=== PATIENT | male | born 1980 | race Caucasian/White ===

== ENCOUNTER 2017-04-07 06:53 | Day surgery (SDC) | payer BC ==
--- NOTE | 2017-04-06 10:18 | Pre-Procedure Note/Attestation ---
Pre-Procedure Note/Attestation Complete Prior to Procedure Planned Procedure: bilateral Procedure Narrative: Septoplasty Submucous resection bilateral inferior turbinates Attestation I attest that I discussed the nature of the procedure; its benefits; risks and complications; and alternatives (and the risks and benefits of such alternatives ), prior to the procedure, with the patient (or the patient's legal sales representative womens health). I attest that, if there was a reasonable possibility of needing a blood transfusion, the patient (or the patient's legal sales representative womens health) was given the [facility] standardized written summary, pursuant to the [place] Blood Safety Act ([place] Health and Safety Code # 1645, as amended). I attest that I re-evaluated the patient just prior to the surgery and that there has been no change in the patient's H&P-dictated 04/06/17 AILYN BOX Apr 06, 2017 10:18
--- NOTE | 2017-04-06 17:30 | Pre-op HX & Phy Repo 2 SIG ---
DATE OF ADMISSION: 04/07/2017 DATE OF SERVICE: 04/06/2017 DATE OF OPERATION: 04/07/2017 INDICATION FOR SURGERY: This is a 36-year-old male for septoplasty, submucous resection of right and left inferior turbinates. He has failed nasal steroids and antihistamines. He has nasal septal deviation and hypertrophied right and left inferior turbinates. ALLERGIES: Sulfa. MEDICATIONS: None on a regular basis. He has been given prescription for amoxicillin and [place] to use postop. PAST SURGICAL HISTORY: No surgical history. FAMILY HISTORY: Breast cancer and hypertension. SOCIAL HISTORY: Single. No children. Denies alcohol and drugs. Just graduated [employer], is not working at the moment. He eats all foods. PHYSICAL EXAMINATION: VITAL SIGNS: The patient is 71 inches, 160 pounds, and BMI 22.32. Blood pressure 120/80, temperature 98.6, pulse 72, and respiratory rate 14. These were taken on 03/31/2017, when he was in the office. HEENT: Head normocephalic. Eyes, PERRLA, EOMI. Lips, tongue, pharynx, and neck normal. Nose, septal deviation and hypertrophied right and left inferior turbinates. NECK: No palpable masses. HEART: Normal S1 and S2. No S3 or S4. No murmur, bruits, gallops, or rubs. ABDOMEN: Soft, nontender. Normoactive. GENITOURINARY: Not done. He does have regular doctor who does this. It is not indicated for the surgery. EXTREMITIES: Grossly normal. NEUROLOGIC: Cranial nerves II through XII grossly normal. ASSESSMENT: The patient has septal deviation and hypertrophied right and left inferior turbinates, all of which had failed nasal steroids and antihistamines to improve his nasal airway. PLAN: Septoplasty, submucous resection of bilateral inferior turbinates as an outpatient. The patient is stable for surgery. Don Gomez M.D. DR: [place] JOB#: [id number] CC:
[~2017-04-07] VITALS: Ht 177.8 cm; Wt 70.3 kg
[2017-04-07] VITALS (13 sets, daily range): BP systolic 130–166; BP diastolic 76–122
[2017-04-07] MEDS ORDERED: Cocaine HCl 4% 4ml vial TOPIC ONE (07:20)
[2017-04-07] MEDS ORDERED: Bupivacaine 0.5% Inj 30 ml vial INJ ONE (07:20)
[2017-04-07] MEDS ORDERED: Lidocaine 1% 10mg/ml/Epi 0.005mg/ml 30ml vial INJ ONE (07:20)
[2017-04-07] MEDS ORDERED: Dexamethasone 4mg/ml vial IVP ONE (07:30)
[2017-04-07] MEDS ORDERED: PROSCAR5 MG ORAL (07:41)
[2017-04-07] MEDS ORDERED: Sterile Water Irrig 1000ml IRRIG ONE (08:00)
[2017-04-07] MEDS ORDERED: NS Irrig 1000ml ONE (08:00)
[2017-04-07] MEDS ORDERED: LR 1000ml ONE (08:00)
[2017-04-07] MEDS ORDERED: Propofol 200mg/20ml IV ONE (08:00)
[2017-04-07] MEDS ORDERED: fentaNYL 100 mcg/2 mL IV ONE (08:00)
[2017-04-07] MEDS ORDERED: Meperidine 25mg/0.5ml Inj (FOR RIGORS ONLY) ONE (08:00)
[2017-04-07] MEDS ORDERED: Lidocaine 1% MPF 10mg/ml 5ml ONE (08:00)
[2017-04-07] MEDS ORDERED: Midazolam 2mg/2ml Inj ONE (08:00)
[2017-04-07] MEDS ORDERED: LR 1000ml 1,000 ML IVLG SCH (08:15)
[2017-04-07] MEDS ORDERED: Meperidine 50mg/ml Inj(FOR RIGORS ONLY) IVP ONE (08:15)
[2017-04-07] MEDS ORDERED: DiphenhydrAMINE 50mg/ml Inj IVP PRN (08:15)
[2017-04-07] MEDS ORDERED: Hydromorphone 0.5mg/0.5ml inj IVP PRN (08:15)
--- NOTE | 2017-04-07 08:20 | Anethesia Preoperative Eval ---
Anesthesia Pre-op PMH/ROS General Date of Evaluation: Apr 07, 2017 Time of Evaluation: 07:40 Anesthesiologist: Jt ASA Score: ASA 1 Mallampati Score Class I : Soft palate, uvula, fauces, pillars visible Class II: Soft palate, uvula, fauces visible Class III: Soft palate, base of uvula visible Class IV: Only hard plate visible Mallampati Classification: Class II Surgeon: Patricia Diagnosis: Deviated septum, hypertrophic turbinates Surgical Procedure: SMR, Septoplasty, Turbinectomy Anesthesia History: none Family History: no anesthesia problems Allergies: Coded Allergies: No Known Allergies (Unverified , 04/06/17) Medications: see eMAR Past Medical History Cardiovascular: Denies: HTN, CAD, [place], valve dz, arrhythmia, other Pulmonary: Denies: asthma, COPD, RAKESH, other Gastrointestinal/Genitourinary: Denies: GERD, CRI, ESRD, other Neurologic/Psychiatric: Denies: dementia, CVA, depression/anxiety, TIA, other Endocrine: Denies: DM, hypothyroidism, steroids, other HEENT: Denies: cataract (L), cataract (R), glaucoma, [place] (L), L[place] (R), other Hematology/Immune: Denies: anemia, DVT, bleeding disorder, other Musculoskeletal/Integumentary: Denies: OA, RA, DJD, DDD, edema, other PMH Narrative: Denies significant PMH PSxH Narrative: [place] tooth extraction Anesthesia Pre-op Phys. Exam Physician Exam Last Vital Signs Date Time Temp Pulse Resp B/P (MAP) Pulse Ox O2 Delivery O2 Flow Rate FiO2 04/07/17 07:32 97.4 61 18 130/82 100 Room Air Constitutional: NAD Neurologic: CN 2-12 intact Cardiovascular: RRR, no M/R/G Respiratory: CTA Gastrointestinal: S/NT/ND Airway Exam Mallampati Score: Class II MO: full ROM: full Teeth: intact Anesthesia Pre-op A/P Risk Assessment & Plan Assessment: Healthy male for sinus surgery Plan: GA, LMA Status Change Before Surgery: No Pre-Antibiotics Drug: Ancef Given Within 1 Hr of Incision: Yes Time Given: 08:00 LAY MARTINS M.D. Apr 07, 2017 08:20
--- NOTE | 2017-04-07 08:21 | Immediate Post-Op Evaluation ---
Immediate Post-Op Evalulation Immediate Post-Op Evalulation Procedure: SMR, Septoplasty, Turbinectomy Date of Evaluation: Apr 07, 2017 Time of Evaluation: 09:00 IV Fluids: 700 Estimated Blood Loss: 20 Blood Pressure Systolic: 166 Blood Pressure Diastolic: 112 Pulse Rate: 88 Respiratory Rate: 14 O2 Sat by Pulse Oximetry: 100 Temperature (Fahrenheit): 97.8 Pain Score (1-10): 2 Nausea: No Vomiting: No Complications Elevated BP- Will treat with hydralazine Patient Status: awake, patent, none Hydration Status: adequate Drug: Ancef Given Within 1 Hr of Incision: Yes Time Given: 08:00 LAY MARTINS M.D. Apr 07, 2017 08:21
--- NOTE | 2017-04-07 08:59 | 48 Hour Post Anesthesia Eval ---
Post Anesthesia Evaluation Procedure: SMR, Septoplasty, Turbinectomy Date of Evaluation: Apr 07, 2017 Time of Evaluation: 09:30 Blood Pressure Systolic: 153 0: 103 Pulse Rate: 84 Respiratory Rate: 16 O2 Sat by Pulse Oximetry: 100 Airway: patent Nausea: No Vomiting: No Pain Intensity: 2 Hydration Status: adequate Cardiopulmonary Status: Stable. BP responding to hydralazine and labetolol. Mental Status/LOC: patient returned to baseline Follow-up Care/Observations: As per surgery Post-Anesthesia Complications: No anesthetic complication Follow-up care needed: N/A LAY MARTINS M.D. Apr 07, 2017 08:59
[2017-04-07] MEDS: Labetalol 5mg/ml 20ml vial IV PRN ×2 (09:08→09:22)
--- NOTE | 2017-04-07 09:24 | Brief Operative Note ---
Immediate Post Operative Note Operative Note Pre-op Diagnosis: Nasal airway obstruction secondary to septal deviation and hypertrophied bilateral inferior turbinates. Procedure: 1. Septoplasty 2. SMR right inferior turbinate 3. SMR left inferior turbinate Post-op Diagnosis: same as pre-op Surgeon: Ailyn Box Die Engraver: none Additional Surgeons: none Anesthesiologist: Jt Anesthesia: general Specimen: none Complications: none Condition: stable Fluids: D5LR Estimated Blood Loss: volume - 20cc Drains: none Packing: Stamberger nasal gel Implant(s) used?: No AILYN BOX Apr 07, 2017 09:24
[2017-04-07] MEDS ORDERED: Norco 5mg/325mg tab ORAL PRN ×3 (09:30→09:45)
[2017-04-07] MEDS ORDERED: HYDROmorphone 1mg/ml Carpuject SUBQ PRN ×3 (09:30→09:45)
[2017-04-07] MEDS ORDERED: Metoclopramide 10mg/2ml Inj IVP PRN ×3 (09:30→09:45)
--- NOTE | 2017-04-07 09:32 | Discharge Instructions ---
Discharge Instructions Discharge Instructions Follow up with: Dr. Box next week in his office-pt has appt already Diet: regular Resume Normal Activity?: No Activity: light activity Pneumonia Vaccine: pt refused vaccine Influenza Vaccine (Jan to Jun): pt refused vaccine Follow Up Orders Pt has printed instructions given to him at his pre op visit-also reviewed with him at that time. Return to Work/School on: Apr 21, 2017 For Surgical Patients May shower: No For Congestive Heart Failure Reminder Report to your physician any weight gain of 5 pounds or more in one week. AILYN BOX Apr 07, 2017 09:32
[2017-04-07] MEDS ORDERED: LR 1000ml 1,000 ML IV SCH (10:30)
--- NOTE | 2017-04-07 20:46 | Operative Note - Dictated ---
DATE OF OPERATION: 04/07/2017 SURGEON: Don Gomez M.D. SCIENTIFIC INFORMATICS LEADER: None. ANESTHESIOLOGIST: Lane Waters M.D. ANESTHESIA: LMA general anesthesia as well as 7 mL of 50/50 mixture of 1% lidocaine with 1:100,000 epinephrine and Marcaine 0.5% with 1:200,000 epinephrine. INDICATION FOR SURGERY: The patient with nasal airway obstruction secondary to septal deviation to the left and hypertrophied right and left inferior turbinates that have not responded to nasal steroids such as Flonase and antihistamines such as Zyrtec and Sudafed. PREOPERATIVE DIAGNOSES: The patient with nasal airway obstruction secondary to septal deviation to the left and hypertrophied right and left inferior turbinates that have not responded to nasal steroids such as Flonase and antihistamines such as Zyrtec and Sudafed. POSTOPERATIVE DIAGNOSES: The patient with nasal airway obstruction secondary to septal deviation to the left and hypertrophied right and left inferior turbinates that have not responded to nasal steroids such as Flonase and antihistamines such as Zyrtec and Sudafed.. FINDINGS: The patient with nasal airway obstruction secondary to septal deviation to the left and hypertrophied right and left inferior turbinates that have not responded to nasal steroids such as Flonase and antihistamines such as Zyrtec and Sudafed. PROCEDURE: 1. Septoplasty. 2. Submucosal resection of right inferior turbinate. 3. Submucosal resection of left inferior turbinate. TECHNIQUE: The patient was prepped and draped in usual manner after time-out. All concurred as to the supplies and procedure to be done. I then injected 1% lidocaine with 1:100,000 epinephrine. A total of 7 mL was into both the inferior turbinates and the septum. Additionally, 4 mL of 4% topical cocaine were placed on four nasal pledgets, two of each were placed in either nostril. Initially, a [place] incision was made in the left side of the septum with #15 blade. I was able to get perichondrium, periosteum, and lift up the flap bilaterally. I then used a small-angled scissors to remove the lower 4 mm of the septum. I then used an osteotome to remove the vomer on the left side and this was pulled out with a straight [place]. The area was then sewn back together with a 4-0 plain suture x1. I then turned my attention to the left inferior turbinate. Incision was made with #15 blade, elevated with [place] elevator. Radiofrequency wand covered with saline gel and placed twice into the inferior turbinate for a count of 10 seconds each time and then removed. The inferior turbinate was then outfractured with a [place] elevator. I then turned my attention to the right inferior turbinate. Incision made with a #15 blade, elevated with a [place] elevator. I then placed the radiofrequency wand after coating it with nasal saline gel x2, each 10 seconds into the inferior turbinate. I then proceeded to outfracture with a [place] elevator. Sponge and needle count was correct. ESTIMATED BLOOD LOSS: A 20 mL. COUNTS: None. DRAINS: None. Stammberger nasal gel was placed into the nasal cavity bilaterally, one syringe. I then proceeded to place a mustache dressing. Twenty minutes later, the patient was stable in recovery room . Don Gomez M.D. : BENJMAÍN JOB#: [id number] CC:
== END 2017-04-07 12:00 | disposition home or self-care (01) ==
LOC: SUR 06:53
DX: J34.2 Deviated nasal septum (principal); J34.3 Hypertrophy of nasal turbinates; Z88.2 Allergy status to sulfonamides; Z82.49 Family history of ischemic heart disease and other diseases of the circulatory system; Z80.3 Family history of malignant neoplasm of breast
CPT/HCPCS: 30140; 30520; J0360; J0690; J2250; J2405; J2704; J3010; J3490; J7120; 94003; 94150; J2180